=== PATIENT | female | born 1995 | race Caucasian/White ===

== ENCOUNTER 2016-08-09 11:24 | Emergency (ER) | payer MEDICAID ==
[2016-08-09 11:29] VITALS: TEMP 98.6
[2016-08-09] MEDS ORDERED: Amoxicillin-Clav 875-125 mg Tab PO STA (11:47)
--- NOTE | 2016-08-09 11:48 | C.PDOC ---
History Of Present Illness 21 year old female presents to the ED with complaints of sore throat with white discharge from left tonsilar area and subjective fever for two days. Patient notes pain is exacerbated by food and hot drinks. She denies any nausea, vomiting, or other complaints at this time. Time Seen by Provider: 08/09/16 11:43 Chief Complaint (Nursing): ENT Problem History Per: Patient History/Exam Limitations: None Onset/Duration Of Symptoms: Days Current Symptoms Are (Timing): Still Present Quality (Mouth/Throat): Other (Sore throat with white discharge from tonsilar area) Anticoagulant/Antiplatlet Use?: No Past Medical History Reviewed: Historical Data, Nursing Documentation, Vital Signs Vital Signs: Last Vital Signs Temp 98.6 F 08/09/16 11:27 Pulse 92 H 08/09/16 11:56 Resp 18 08/09/16 11:56 BP 118/65 08/09/16 11:56 Pulse Ox 98 08/09/16 11:56 Family History: States: No Known Family Hx - Social History Hx Alcohol Use: No Hx Substance Use: No - Immunization History Hx Tetanus Toxoid Vaccination: No Hx Influenza Vaccination: No Hx Pneumococcal Vaccination: No Review Of Systems Constitutional: Positive for: Fever. Negative for: Chills, Sweats ENT: Positive for: Other (sore throat with white discharge from left tonsilar area ) Cardiovascular: Negative for: Chest Pain, Palpitations Respiratory: Negative for: Cough, Shortness of Breath Gastrointestinal: Negative for: Nausea, Vomiting, Abdominal Pain, Diarrhea Physical Exam - Physical Exam Appears: Non-toxic, No Acute Distress Skin: Warm, Dry Head: Atraumatic Oral Mucosa: Moist Tongue: Normal Appearing, No Swelling Lips: Normal Appearing, No Swelling Throat: Exudate (exudae on left tonsil and pharynx ) Neck: Supple Chest: Symmetrical, No Deformity Cardiovascular: Rhythm Regular Respiratory: No Rales, No Rhonchi, No Stridor, No Wheezing Gastrointestinal/Abdominal: Soft, No Tenderness, No Distention, No Guarding, No Rebound Extremity: Normal ROM, No Tenderness Neurological/Psych: Oriented x3 ED Course And Treatment O2 Sat by Pulse Oximetry: 100 (room air ) Medical Decision Making Medical Decision Making: exudative L tonsillitis/pharyngitis low susp of tonsillar abscess Disposition Doctor Will See Patient In The: Office Counseled Patient/Family Regarding: Studies Performed, Diagnosis - Disposition Referrals: [facility] [Outside] [facility] [Outside] Wyatt Adam MD [Staff Provider] - Disposition: HOME/ ROUTINE Disposition Time: 11:48 Condition: GOOD Additional Instructions: Augmentin 875 mg (antibiotic based in penicillin) twice a day for 7 days total do NOT stop taking the antibiotics early, concerns for complications with the heart valves Motrin 600 mg every 6 hours as needed for pain/fever Pepcid 20 mg @ night to prevent stomach irritation from the Motrin and the Augmentin. Expect to continue to have fevers 2-3 more days. Follow-up in our Clinic or our ENT (ear, nose and throat specialist) in 2-3 days as needed. Prescriptions: Amoxicillin/Clavulanate [Augmentin 875 MG-125 MG] 1 tab PO BID #13 tab Instructions: Tonsillitis (ED) - Clinical Impression Clinical Impression: Tonsillar exudate - Scribe Statement The provider has reviewed the documentation as recorded by the Kathyibsotero Dupont All medical record entries made by the Dana were at my direction and personally dictated by me. I have reviewed the chart and agree that the record accurately reflects my personal performance of the history, physical exam, medical decision making, and the department course for this patient. I have also personally directed, reviewed, and agree with the discharge instructions and disposition.
[2016-08-09] MEDS ORDERED: Amoxicillin-Clav 875-125 mg Tab PO ONE (11:50)
[2016-08-09 11:56] VITALS: BP 118/65; PULSE 92; RESP 18
[2016-08-09 13:58] VITALS: O2SAT 100
== END 2016-08-09 11:57 | disposition home or self-care (01) ==
LOC: C.ER 11:24
DX: J03.90 Acute tonsillitis, unspecified (principal)